=== PATIENT | female | born 1995 | race Caucasian/White ===

== ENCOUNTER 2024-09-09 12:51 | Emergency (ER) | payer OTHER ==
[~2024-09-09] VITALS: Ht 180.3 cm; Wt 118.0 kg
[2024-09-09] MEDS ORDERED: AMOX875T2 PO (13:11)
[2024-09-09] MEDS ORDERED: BENA25CA4 PO (13:11)
[2024-09-09] MEDS ORDERED: LEXA1TAB PO (13:11)
[2024-09-09 16:25] VITALS: BP 135/78; TEMP 99.8; O2SAT 98
[2024-09-09 16:25] LABS: BASO # 0.1 10^3/uL (0.0-0.2); BASO % 0.6 % (0.0-1.0); EOS # 0.2 10^3/uL (0.0-0.5); EOS % 1.5 % (0.0-3.0); HEMATOCRIT 47.8 % (36.0-47.0); HEMOGLOBIN 16.4 g/dl (12.0-15.5); LYMPH # 2.6 10^3/uL (1.5-5.0); LYMPH % 18.7 % (24.0-44.0); MEAN CORPUSCULAR HEMOGLOBIN 29.9 pg (27.0-33.0); MEAN CORPUSCULAR HGB CONC 34.3 g/dl (32.0-36.5); MEAN CORPUSCULAR VOLUME 87.1 fl (80.0-96.0); MONO # 0.8 10^3/uL (0.0-0.8); MONO % 5.5 % (2.0-8.0); NEUTROPHILS % 73.3 % (36.0-66.0); PLATELET COUNT, AUTOMATED 289 10^3/uL (150-450); RED BLOOD COUNT 5.49 10^6/uL (4.00-5.40); WHITE BLOOD COUNT 13.6 10^3/uL (4.0-10.0)
[2024-09-09 16:36] LABS: ERYTHROCYTE SEDIMENTATION RATE 62 mm/hr (0-20)
[2024-09-09 16:57] LABS: HCG, SERUM QUALITATIVE NEGATIVE (NEGATIVE); MONO SCRN NEGATIVE (NEGATIVE)
[2024-09-09] MEDS ORDERED: PRED20TA PO (17:10)
[2024-09-09] MEDS: predniSONE 20 MG TAB PO ONE (17:15)
[2024-09-10] MEDS ORDERED: PRED20TA PO (11:20)
== END 2024-09-09 17:24 | disposition home or self-care (01) ==
LOC: M ED 12:51
DX: J02.0 Streptococcal pharyngitis (principal); Z88.1 Allergy status to other antibiotic agents; Z11.52 Encounter for screening for COVID-19
CPT/HCPCS: 36415; 80047; 84703; 85025; 85652; 86140; 86308; 87486; 87581; 87633; 87798; 87880; 99284; J7512